=== PATIENT | female | born 1985 | race Caucasian/White ===

== ENCOUNTER 2017-04-13 14:50 | Outpatient (CLI) | payer MEDICAID ==
[~2017-04-13] VITALS: Ht 152.4 cm; Wt 74.5 kg
[2017-04-13 14:55] VITALS: BP 112/77
[2017-04-13] MEDS ORDERED: PREN1TAB60 PO (16:12)
== END 2017-04-13 16:20 | disposition home or self-care (01) ==
LOC: LDOP 14:50
PROVIDERS: ATTEND Obstetrics & Gynecology
DX: O26.893 Other specified pregnancy related conditions, third trimester (principal); R10.9 Unspecified abdominal pain; Z3A.37 37 weeks gestation of pregnancy
CPT/HCPCS: 59025; 99211; G0463

== ENCOUNTER 2017-04-27 15:59 | Outpatient (CLI) | payer MEDICAID ==
[~2017-04-27] VITALS: Ht 152.4 cm; Wt 77.3 kg
[~2017-04-27 15:59] MED LIST: PREN1TAB60 PO
[2017-04-27 16:21] VITALS: BP 119/79
== END 2017-04-27 17:00 | disposition home or self-care (01) ==
LOC: LDOP 15:59
PROVIDERS: ATTEND Obstetrics & Gynecology
DX: O26.893 Other specified pregnancy related conditions, third trimester (principal); O62.9 Abnormality of forces of labor, unspecified; R10.9 Unspecified abdominal pain; Z3A.39 39 weeks gestation of pregnancy
CPT/HCPCS: 59025; 99211; G0463

== ENCOUNTER 2017-04-30 06:00 | Inpatient (IN) | payer MEDICAID ==
[~2017-04-30] VITALS: Ht 152.4 cm; Wt 78.0 kg
[2017-04-30] MEDS ORDERED: LACTATED RINGERS 1,000 ML IV SCH ×3 (06:02→15:51)
[2017-04-30] MEDS ORDERED: OXYTOCIN 30U/ 0.9% NaCL 500ML 500 ML IV SCH (06:02)
[2017-04-30] MEDS ORDERED: OXYTOCIN 30U/ 0.9% NaCL 500ML 500 ML IV ONE (06:09)
[2017-04-30] MEDS ORDERED: OXYTOCIN 30U/ 0.9% NaCL 500ML 500 ML IV PRN (06:09)
[2017-04-30] MEDS ORDERED: D5%-LACTATED RINGERS 1,000 ML IV SCH (06:09)
[2017-04-30 06:24] VITALS: BP 121/76
[2017-04-30] MEDS ORDERED: METOCLOPRAMIDE 5 MG/ML, 2ML IV ONE (06:30)
[2017-04-30] MEDS ORDERED: ONDANSETRON 2MG/ML, 2ML IVPush PRN (06:30)
[2017-04-30] MEDS ORDERED: FENTANYL PF 100 MCG/2ML IV PRN (06:30)
[2017-04-30] MEDS ORDERED: SODIUM CITRATE/CITRIC ACID 30 ML UDC PO ONE (06:30)
[2017-04-30] MEDS ORDERED: TERBUTALINE 1 MG/ML, 1ML IVPush PRN (06:30)
[2017-04-30] MEDS ORDERED: LACTATED RINGERS 1,000 ML IVBOLUS ONE (06:30)
[2017-04-30] MEDS ORDERED: FENTANYL PF 100 MCG/2ML IVPush PRN (06:30)
[2017-04-30] MEDS ORDERED: OXYTOCIN 30U/ 0.9% NaCL 500ML 500 ML ONE (06:37)
[2017-04-30] MEDS ORDERED: NEWBORN KIT ONE (06:38)
[2017-04-30] MEDS: LACTATED RINGERS 1,000 ML IV SCH ×2 (06:49→14:56)
[2017-04-30] MEDS ORDERED: FENTANYL/BUPIV./NS/PF 250 ML EPIDCONT ONE (15:09)
[2017-04-30] MEDS ORDERED: FENTANYL/BUPIV./NS/PF 250 ML EPIDCONT SCH (15:51)
[2017-04-30] MEDS ORDERED: NALOXONE 0.4 MG/ML, 1ML IVPush PRN (16:00)
[2017-04-30] MEDS ORDERED: LACTATED RINGERS 1,000 ML IVBOLUS PRN (16:00)
[2017-04-30] MEDS ORDERED: EPHEDRINE 50 MG/ML, 1ML IVPush PRN (16:00)
[2017-04-30] MEDS ORDERED: METHYLERGONOVINE 0.2 MG/ML IM ONE (18:52)
[2017-04-30] MEDS: OXYTOCIN 30U/ 0.9% NaCL 500ML 500 ML IV SCH (20:15)
[2017-04-30] MEDS ORDERED: OXYTOCIN 10 UNITS/ML, 1ML IM PRN (20:30)
[2017-04-30] MEDS ORDERED: ONDANSETRON 2MG/ML, 2ML IV PRN (20:30)
[2017-04-30] MEDS ORDERED: CARBOPROST TROMETHAMINE 250 MCG/ML, 1ML IM PRN (20:30)
[2017-04-30] MEDS ORDERED: OXYcodone/APAP 5/325MG TABLET PO PRN (20:30)
[2017-04-30] MEDS ORDERED: ACETAMINOPHEN 325 MG TABLET PO PRN (20:30)
[2017-04-30] MEDS ORDERED: MISOPROSTOL 200 MCG TABLET PR PRN (20:30)
[2017-04-30 22:35] VITALS: BP 116/50
[2017-04-30] MEDS: IBUPROFEN 600 MG TABLET PO PRN (22:49)
[2017-04-30] MEDS: DOCUSATE 100 MG CAPSULE PO PRN (22:49)
[2017-05-01 03:30] VITALS: BP 90/52
[2017-05-01] MEDS: IBUPROFEN 600 MG TABLET PO PRN ×3 (04:35→17:27)
[2017-05-01] MEDS: OXYTOCIN 30U/ 0.9% NaCL 500ML 500 ML IV SCH ×2 (06:15→16:15)
[2017-05-01] MEDS ORDERED: PRENATAL VIT/IRON/FA 1 EACH TABLET ONE (07:57)
[2017-05-01 08:05] VITALS: BP 132/83
[2017-05-01] MEDS: DOCUSATE 100 MG CAPSULE PO PRN (08:06)
[2017-05-01] MEDS: OXYcodone/APAP 5/325MG TABLET PO PRN ×3 (08:20→17:28)
[2017-05-01] MEDS ORDERED: PRENATAL VIT/IRON/FA 1 EACH TABLET PO SCH (09:00)
[2017-05-01 12:00] VITALS: BP 122/77
[2017-05-01 16:00] VITALS: BP 115/75
[2017-05-01] MEDS ORDERED: IBUP-1222 PO (16:44)
[2017-05-01] MEDS ORDERED: OXYC-302 PO (16:45)
[2017-05-01] MEDS ORDERED: DOCU-30 PO (16:46)
== END 2017-05-01 20:30 | disposition home or self-care (01) | DRG 775 ==
LOC: LDIP 06:00 → 2NW 22:20
PROVIDERS: ADMIT Obstetrics & Gynecology; ATTEND Obstetrics & Gynecology
PROC: 10E0XZZ Delivery of Products of Conception, External Approach (ICD-10-PCS; principal; 2017-04-30)
PROC: 0UBGXZZ Excision of Vagina, External Approach (ICD-10-PCS; 2017-04-30)
PROC: 0W8NXZZ Division of Female Perineum, External Approach (ICD-10-PCS; 2017-04-30)
PROC: 3E0R3CZ (ICD-10-PCS; 2017-04-30)
PROC: 00HU33Z Insertion of Infusion Device into Spinal Canal, Percutaneous Approach (ICD-10-PCS; 2017-04-30)
DX: O69.1XX0 Labor and delivery complicated by cord around neck, with compression, not applicable or unspecified (principal); N89.8 Other specified noninflammatory disorders of vagina; O34.83 Maternal care for other abnormalities of pelvic organs, third trimester; J45.909 Unspecified asthma, uncomplicated; O99.52 Diseases of the respiratory system complicating childbirth; Z3A.39 39 weeks gestation of pregnancy; Z37.0 Single live birth
CPT/HCPCS: 36415; 85025; 86850; 86900; 88305; J2590; J3010; J7120

== ENCOUNTER 2017-05-12 11:21 | Emergency (ER) | payer MEDICAID ==
[~2017-05-12] VITALS: Ht 152.4 cm; Wt 68.7 kg
[~2017-05-12 11:21] MED LIST changes: +DOCU-30 PO; +IBUP-1222 PO; +OXYC-302 PO
[2017-05-12 11:41] VITALS: BP 133/88
== END 2017-05-12 12:54 | disposition home or self-care (01) ==
LOC: ED 12:48
DX: K12.0 Recurrent oral aphthae (principal)
CPT/HCPCS: 99283